=== PATIENT | male | born 1980 | race Caucasian/White ===

== ENCOUNTER 2018-08-09 09:31 | Emergency (ER) | payer OTHER ==
--- NOTE | 2018-08-09 11:34 | ED Physician Documentation ---
PD HPI CHEST PAIN - Stated complaint Stated Complaint: CHEST SPASM - Chief complaint Chief Complaint: Cardiac - History obtained from History obtained from: Patient, Family - History of Present Illness Timing - onset: Other (For the last 3 days he has had an intermittent sensation of fluttering in his chest. It will happen several times a minute. It is not painful it is justWorrisome. There is no associated dizziness, shortness of breath, pedal edema, calf pain. He had never had this before. No increase in stimulants or caffeine use although he does use for caffeine fairly heavily.) Review of Systems Constitutional: denies: Fever, Chills Cardiac: denies: Chest pain / pressure, Pedal edema, Calf pain Respiratory: denies: Dyspnea, Cough GI: denies: Abdominal Pain PD PAST MEDICAL HISTORY - Allergies Allergies/Adverse Reactions: Allergies Allergy/AdvReac Type Severity Reaction Status Date / Time No Known Drug Allergies Allergy Verified 08/09/18 10:05 PD ED PE NORMAL - Vitals Vital signs reviewed: Yes - General General: Alert and oriented X 3, No acute distress - Neck Neck: Supple, no meningeal sign, No bony TTP, No JVD - Cardiac Cardiac: RRR, No murmur - Respiratory Respiratory: No respiratory distress, Clear bilaterally - Abdomen Abdomen: Non tender - Extremities Extremities: No edema, No calf tenderness / cord - Neuro Neuro: Alert and oriented X 3, Normal speech Results - Vitals Vitals: Vital Signs - 24 hr 08/09/18 10:01 Temperature 36.3 C L Heart Rate 68 Respiratory 18 Rate Blood Pressure 160/97 H O2 Saturation 99 Oxygen O2 Source Room air - EKG (time done) 1027 Rate: Rate (enter#) (75) Rhythm: NSR [place]: Normal Intervals: Normal [place] QRS: Normal Ischemia: ST elevation c/w ischemia Computer interpretation: Agree with computer - Labs Labs: Laboratory Tests 08/09/18 08/09/18 08/09/18 11:53 11:53 11:53 WBC 7.3 RBC 5.28 Hgb 15.3 Hct 45.1 MCV 85.5 MCH 29.0 MCHC 34.0 RDW 13.9 Plt Count 236 MPV 8.6 Neut # (Auto) 5.0 Lymph # (Auto) 1.6 [place] # (Auto) 0.4 Eos # (Auto) 0.1 Baso # (Auto) 0.1 Absolute Nucleated RBC 0.00 Nucleated RBC % 0.0 Sodium 134 L Potassium 3.9 Chloride 101 Carbon Dioxide 23 Anion Gap 10.0 BUN 12 Creatinine 0.8 Estimated GFR (MDRD) 109 Glucose 153 H Calcium 8.9 Magnesium 1.9 Troponin I < 0.04 PD MEDICAL DECISION MAKING - ED course ED course: This is a 37-year-old gentleman with chest symptoms. No pain. He feels like what he describes as a cell phone buzzing on his chest. It happens intermittently. He had no arrhythmias on the monitor initially and he was occasionally symptomatic in the emergency department and review of the room and rhythm strip showed only sinus rhythm without PVCs. Departure - Departure Disposition: 01 Home, Self Care Clinical Impression: Chest wall symptom or complaint, Hyperglycemia, unspecified Condition: Good Record reviewed to determine appropriate education?: Yes Instructions: ED Chest Pain NonCardiac Comments: Call your doctor to arrange a follow-up appointment, make the next available appointment. In the interim, return anytime if worse or if new symptoms develop. Your blood pressure was elevated today on check into the emergency department. This does not mean that you have hypertension, it is a common phenomenon to come to the emergency department and have elevated blood pressure. I recommend that you see your primary care physician within the week to have it rechecked when you are feeling better.
[2018-08-09 12:08] LABS: BASOPHILS # (AUTO) 0.1 10^3/uL (0.0-0.1); CALCIUM 8.9 mg/dL (8.5-10.3); CREATININE 0.8 mg/dL (0.6-1.2); EOSINOPHILS # (AUTO) 0.1 10^3/uL (0.0-0.7); HGB - HEMOGLOBIN 15.3 g/dL (14.0-18.0); LYMPHOCYTES # (AUTO) 1.6 10^3/uL (1.5-3.5); LYMPHOCYTES % (AUTO) 22.3 %; MAGNESIUM 1.9 mg/dL (1.7-2.8); MEAN CORPUSCULAR VOLUME 85.5 fL (80.0-94.0); MEAN PLATELET VOLUME 8.6 fL (7.4-11.4); MONOCYTES # (AUTO) 0.4 10^3/uL (0.0-1.0); MONOCYTES % (AUTO) 5.4 %; NEUTROPHILS % (AUTO) 69.3 %; PLT - PLATELET COUNT 236 10^3/uL (130-450); RED BLOOD COUNT 5.28 10^6/uL (4.70-6.10); RED CELL DISTRIBUTION WIDTH 13.9 % (12.0-15.0); WHITE BLOOD COUNT 7.3 x10^3/uL (4.8-10.8)
[2018-08-09 12:27] VITALS: BP 134/85
== END 2018-08-09 12:29 | disposition home or self-care (01) ==
LOC: ED 09:31
DX: I49.8 Other specified cardiac arrhythmias (principal); R73.9 Hyperglycemia, unspecified; R03.0 Elevated blood-pressure reading, without diagnosis of hypertension
CPT/HCPCS: 36415; 80048; 83735; 84484; 85025; 93005; 99283